=== PATIENT | male | born 1995 | race Caucasian/White ===

== ENCOUNTER 2018-04-05 16:49 | Emergency (ER) | payer OTHER ==
[2018-04-05] MEDS ORDERED: KETOROLAC 30 MG/ML VIAL IVP STA (17:06)
[2018-04-05] MEDS ORDERED: LIDOCAINE-MPF 2% 10 ML in SODIUM CHLORIDE 0.9% 50 ML IV STA (17:06)
--- NOTE | 2018-04-05 17:10 | ED Physician Documentation ---
PD HPI ABD PAIN - Stated complaint Stated Complaint: BACK/R FLANK PX/VOMITING - Chief complaint Chief Complaint: Back Pain - History obtained from History obtained from: Patient, Family - History of Present Illness Timing - onset: Today Timing - duration: Hours (5) Timing - details: Abrupt onset Pain level max: 10 Pain level now: 10 Quality: Aching, Pain Location: Other (R flank) Radiation: Other (lower abd) Improved by: Other (nothing) Worsened by: Other (nothing) Associated symptoms: Nausea, Vomiting. No: Fever, Hematemesis, Diarrhea, Constipation, Melena, Hematochezia, Dysuria, Hematuria, Chest pain, Near syncope / syncope Similar symptoms before: Diagnosis (renal colic) Recently seen: Not recently seen Review of Systems Ten Systems: 10 systems reviewed and negative Constitutional: denies: Fever, Chills Ears: denies: Ear pain Nose: denies: Rhinorrhea / runny nose, Congestion Throat: denies: Sore throat Cardiac: denies: Chest pain / pressure Respiratory: denies: Cough GI: denies: Nausea, Vomiting, Diarrhea Skin: denies: Rash Musculoskeletal: denies: Neck pain Neurologic: denies: Headache PD PAST MEDICAL HISTORY - Past Surgical History Past Surgical History: No - Present Medications Home Medications: Ambulatory Orders Medication Instructions Recorded Confirmed Acetaminophen [Tylenol] 650 mg PO Q6H #30 supp 03/14/13 06/24/14 Ibuprofen [Motrin] 400 mg PO Q6H #30 tablet 03/14/13 06/24/14 Hydrocodone/Acetaminophen 1 - 2 each PO Q6H PRN #10 tablet 04/05/18 [Hydrocodon-Acetaminophen 5-325] Ibuprofen [Motrin] 800 mg PO Q8H PRN #30 tablet 04/05/18 Ondansetron Odt [Zofran] 4 mg TL Q6H PRN #10 tablet 04/05/18 - Allergies Allergies/Adverse Reactions: Allergies Allergy/AdvReac Type Severity Reaction Status Date / Time No Known Drug Allergies Allergy Verified 04/05/18 16:59 - Social History Does the pt smoke?: No Smoking Status: Never smoker Does the pt drink ETOH?: No Does the pt have substance abuse?: No - Immunizations Immunizations are current?: Yes - POLST Patient has POLST: No PD ED PE NORMAL - Vitals Vital signs reviewed: Yes - General General: Alert and oriented X 3, Well developed/nourished, Other (Appears in pain) - HEENT HEENT: PERRL, Moist mucous membranes - Neck Neck: Supple, no meningeal sign - Cardiac Cardiac: RRR, Strong equal pulses - Respiratory Respiratory: No respiratory distress, Clear bilaterally - Abdomen Abdomen: Soft, Non tender, Non distended - Back Back: No CVA TTP, No spinal TTP - Derm Derm: Warm and dry - Extremities Extremities: No edema - Neuro Neuro: Alert and oriented X 3 - Psych Psych: Normal mood, Normal affect Results - Vitals Vitals: Vital Signs - 24 hr 04/05/18 04/05/18 16:57 19:35 Temperature 35.3 C L Heart Rate 64 73 Respiratory 18 17 Rate Blood Pressure 157/78 H 122/74 O2 Saturation 98 98 Oxygen O2 Source Room air - Labs Labs: Laboratory Tests 04/05/18 04/05/18 04/05/18 17:10 17:18 17:18 WBC 12.2 H RBC 4.71 Hgb 13.1 L Hct 40.1 L MCV 85.1 MCH 27.8 MCHC 32.6 RDW 14.0 Plt Count 311 MPV 8.1 Neut # (Auto) 10.3 H Lymph # (Auto) 1.3 L [place] # (Auto) 0.5 Eos # (Auto) 0.0 Baso # (Auto) 0.0 Absolute Nucleated RBC 0.00 Nucleated RBC % 0.0 Sodium 139 Potassium 3.7 Chloride 104 Carbon Dioxide 24 Anion Gap 11.0 BUN 12 Creatinine 0.9 Estimated GFR (MDRD) 106 Glucose 131 H Calcium 9.4 Total Bilirubin 0.8 AST 21 ALT 28 Alkaline Phosphatase 81 Total Protein 8.0 Albumin 4.3 Globulin 3.7 Albumin/Globulin Ratio 1.2 Lipase 22 Urine Color YELLOW Urine Clarity CLOUDY Urine pH 7.5 Ur Specific [place] 1.020 Urine Protein NEGATIVE Urine Glucose (UA) NEGATIVE Urine Ketones TRACE Urine Occult Blood LARGE H Urine Nitrite NEGATIVE Urine Bilirubin NEGATIVE Urine Urobilinogen 0.2 (NORMAL) Ur Leukocyte Esterase NEGATIVE Urine RBC 11-25 H Urine WBC 0-3 Ur Squamous Epith Cells NONE SEEN Amorphous Sediment Marked Urine Bacteria None Seen Ur Microscopic Review INDICATED Urine Culture Comments NOT INDICATED - Rads (name of study) CT abdomen and pelvis Radiology: Prelim report reviewed, EMP read contemporaneously, See rad report ( 3 mm obstructing calculus in the right mid ureter.) PD MEDICAL DECISION MAKING - ED course Complexity details: reviewed results, re-evaluated patient, considered differential, d/w patient, d/w family ED course: Patient is a 22-year-old male with right flank pain. Has a 3 mm right mid ureteral stone. Given IV lidocaine and Toradol. Pain resolved. No vomiting. No evidence of infected stone. Will place on pain medication for home and follow-up with his doctor. Patient counseled regarding signs and symptoms for which I believe and urgent re-evaluation would be necessary. Patient with good understanding of and agreement to plan and is comfortable going home at this time This document was made in part using voice recognition software. While efforts are made to proofread this document, sound alike and grammatical errors may occur. - Sepsis Event Vital Signs: Vital Signs - 24 hr 04/05/18 04/05/18 16:57 19:35 Temperature 35.3 C L Heart Rate 64 73 Respiratory 18 17 Rate Blood Pressure 157/78 H 122/74 O2 Saturation 98 98 Oxygen O2 Source Room air Departure - Departure Disposition: 01 Home, Self Care Clinical Impression: Ureteral stone Condition: Good Instructions: ED Stone Renal W Colic Follow-Up: your,doctor in 1 week [Other] Prescriptions: Hydrocodone/Acetaminophen [Hydrocodon-Acetaminophen 5-325] 1 - 2 each PO Q6H PRN #10 tablet PRN Reason: pain Ibuprofen [Motrin] 800 mg PO Q8H PRN #30 tablet PRN Reason: PAIN &/OR FEVER Ondansetron Odt [Zofran] 4 mg TL Q6H PRN #10 tablet PRN Reason: Nausea / Vomiting Comments: Drink plenty of water. Return if you worsen, especially for fevers. You do have a kidney stone on the right side, this should pass on its own. Do not drink alcohol or drive while on narcotic pain medicine. Note that many narcotic pain relievers also contain tylenol/acetaminophen. Please ensure that your total dose of acetaminophen from all sources does not exceed 3 grams (3000mg) per day. You may constipated on this medication, take a stool softener such as "Colace" twice a day while you are on it. Also recommend a [id number] laxative such as senna or MiraLAX any day that you do not have a bowel movement. If you received narcotic pain medication in the emergency department, do not drive or operate machinery for the next 24 hours. Discharge Date/Time: 04/05/18 19:36
[2018-04-05 17:19] LABS: BILIRUBIN,URINE NEGATIVE (NEGATIVE); GLUCOSE, URINE (UA) NEGATIVE (NEGATIVE); KETONES,URINE (UA) TRACE mg/dL (NEGATIVE); LEUKOCYTE ESTERASE, URINE NEGATIVE (NEGATIVE); NITRITE,URINE NEGATIVE (NEGATIVE); OCCULT BLOOD,URINE LARGE (NEGATIVE); PH,URINE 7.5 PH (5.0-7.5); PROTEIN,URINE NEGATIVE (NEGATIVE); UROBILINOGEN,URINE 0.2 (NORMAL) E.U./dL (NORMAL)
[2018-04-05 17:20] LABS: CLARITY,URINE CLOUDY (CLEAR)
[2018-04-05 17:22] LABS: BASOPHILS % (AUTO) 0.2 %; EOSINOPHILS % (AUTO) 0.1 %; HGB - HEMOGLOBIN 13.1 g/dL (14.0-18.0); LYMPHOCYTES # (AUTO) 1.3 10^3/uL (1.5-3.5); LYMPHOCYTES % (AUTO) 10.6 %; MEAN CORPUSCULAR HEMOGLOBIN 27.8 pg (27.0-31.0); MEAN CORPUSCULAR HGB CONC 32.6 g/dL (32.0-36.0); MEAN CORPUSCULAR VOLUME 85.1 fL (80.0-94.0); MEAN PLATELET VOLUME 8.1 fL (7.4-11.4); MONOCYTES # (AUTO) 0.5 10^3/uL (0.0-1.0); MONOCYTES % (AUTO) 4.4 %; NEUTROPHILS # (AUTO) 10.3 10^3/uL (1.5-6.6); NEUTROPHILS % (AUTO) 84.7 %; PLT - PLATELET COUNT 311 10^3/uL (130-450); RED BLOOD COUNT 4.71 10^6/uL (4.70-6.10); WHITE BLOOD COUNT 12.2 x10^3/uL (4.8-10.8)
[2018-04-05 17:32] LABS: AMORPHOUS SEDIMENT,UR Marked /LPF; BACTERIA,URINE None Seen /HPF (None Seen); SQUAMOUS EPITHELIAL CELL,UR NONE SEEN (<= Few)
[2018-04-05 17:37] LABS: ALBUMIN 4.3 g/dL (3.2-5.5); ALBUMIN/GLOBULIN RATIO 1.2 (1.0-2.2); BILIRUBIN,TOTAL 0.8 mg/dL (0.2-1.0); CALCIUM 9.4 mg/dL (8.5-10.3); CREATININE 0.9 mg/dL (0.6-1.2)
[2018-04-05] MEDS ORDERED: IOPAMIDOL-300 100 ML VIAL ONE (18:52)
[2018-04-05] MEDS ORDERED: IOPAMIDOL-300 100 ML VIAL IVP ONE (19:17)
--- NOTE | 2018-04-05 19:26 | CT Report ---
Procedure Date: 04/05/2018 Accession Number: [id number] / [id number] Procedure: CT - Abdomen/Pelvis W/ CPT Code: FULL RESULT: EXAM: CT ABDOMEN AND PELVIS EXAM DATE: 04/05/2018 06:57 PM. CLINICAL HISTORY: R flank pain. COMPARISONS: None. TECHNIQUE: Routine helical CT imaging was performed through the abdomen and pelvis. IV contrast: ISOVUE 300 100mL. Enteric contrast: No. Reconstructions: Coronal and sagittal. In accordance with CT protocol optimization, one or more of the following dose reduction techniques were utilized for this exam: automated exposure control, adjustment of mA and/or KV based on patient size, or use of iterative reconstructive technique. FINDINGS: ABDOMEN: Lung Bases: Incompletely included lower lungs are grossly clear. Heart size is within normal limits. No basilar effusions. Liver: Unremarkable. Spleen: Unremarkable. Pancreas: Unremarkable. Gallbladder/Bile Ducts: Gallbladder is unremarkable. Biliary tree is normal caliber. Adrenal Glands: Unremarkable. Kidneys: Obstructing 3 mm calculus in the right mid ureter with upstream mild hydroureteronephrosis. Left kidney is unremarkable. Peritoneum/Mesentery/Bowel: No free fluid, free air, or collection. No intestinal obstruction or inflammation. The appendix is within normal limits. Lymph nodes: No mesenteric, periportal, or retroperitoneal lymphadenopathy. Vasculature: Abdominal aorta is nonaneurysmal. Portal vein is patent. Hepatic veins are patent. PELVIS: The bladder is unremarkable for the degree of distention. The uterus is absent. No pelvic lymphadenopathy. Bones: No suspicious osseous lesions. IMPRESSION: 3 mm obstructing calculus in the right mid ureter. RADIA
[2018-04-05 19:37] VITALS: BP 122/74
== END 2018-04-05 19:36 | disposition home or self-care (01) ==
LOC: ED 16:49
DX: N20.1 Calculus of ureter (principal)
CPT/HCPCS: 36415; 74177; 80053; 81001; 83690; 85025; 96365; 96375; 99283; 99284; Q9967; 81003; 87086

== ENCOUNTER 2023-09-28 09:48 | Emergency (ER) | payer MEDICAID, OTHER ==
[2023-09-28 10:14] LABS: BASOPHILS # (AUTO) 0.1 10^3/uL (0.0-0.1); BASOPHILS % (AUTO) 0.4 %; EOSINOPHILS # (AUTO) 0.1 10^3/uL (0.0-0.7); EOSINOPHILS % (AUTO) 0.6 %; HCT - HEMATOCRIT 47.2 % (42.0-52.0); HGB - HEMOGLOBIN 14.6 g/dL (14.0-18.0); LYMPHOCYTES # (AUTO) 2.8 10^3/uL (1.5-3.5); LYMPHOCYTES % (AUTO) 19.4 %; MEAN CORPUSCULAR HEMOGLOBIN 26.6 pg (27.0-31.0); MEAN CORPUSCULAR HGB CONC 30.9 g/dL (32.0-36.0); MEAN PLATELET VOLUME 10.2 fL (7.4-11.4); MONOCYTES # (AUTO) 1.1 10^3/uL (0.0-1.0); MONOCYTES % (AUTO) 7.4 %; NEUTROPHILS # (AUTO) 10.2 10^3/uL (1.5-6.6); NEUTROPHILS % (AUTO) 71.8 %; PLT - PLATELET COUNT 362 10^3/uL (130-450); RED BLOOD COUNT 5.49 10^6/uL (4.70-6.10); RED CELL DISTRIBUTION WIDTH 13.2 % (12.0-15.0); WHITE BLOOD COUNT 14.2 x10^3/uL (4.8-10.8)
[2023-09-28 10:31] LABS: ALBUMIN 4.3 g/dL (3.2-5.5); ALBUMIN/GLOBULIN RATIO 1.3 (1.0-2.2); ALKALINE PHOSPHATASE 215 IU/L (42-121); ALT ALANINE AMINOTRANSFERASE 357 IU/L (10-60); AST ASPARTATE AMINOTRANSFERASE 170 IU/L (10-42); BILIRUBIN,TOTAL 3.1 mg/dL (0.2-1.0); BUN - BLOOD UREA NITROGEN 4 mg/dL (6-20); CALCIUM 9.9 mg/dL (8.5-10.3); CARBON DIOXIDE - CO2 20 mmol/L (21-32); CHLORIDE 104 mmol/L (101-111); CREATININE 0.8 mg/dL (0.6-1.3); GFR - MDRD 115 (>89); GLUCOSE 196 mg/dL (74-104); POTASSIUM 3.7 mmol/L (3.5-4.5); SODIUM 135 mmol/L (135-145); TOTAL PROTEIN 7.6 g/dL (6.4-8.9)
[2023-09-28 10:49] LABS: LIPASE > 6000 U/L (11-82)
[2023-09-28] MEDS ORDERED: SODIUM CHLORIDE 0.9% 1,000 ML IV STA (10:57)
[2023-09-28 10:58] LABS: GLUCOSE, URINE (UA) NEGATIVE (NEGATIVE); KETONES,URINE (UA) NEGATIVE (NEGATIVE); LEUKOCYTE ESTERASE, URINE NEGATIVE (NEGATIVE); NITRITE,URINE NEGATIVE (NEGATIVE); OCCULT BLOOD,URINE MODERATE (NEGATIVE); PROTEIN,URINE NEGATIVE (NEGATIVE); UROBILINOGEN,URINE 4 E.U./dL (NORMAL)
[2023-09-28] MEDS ORDERED: ONDANSETRON 4 MG/2 ML VIAL IVP STA (11:00)
[2023-09-28] MEDS ORDERED: HYDROmorphone 1 MG/ML CARPUJECT IVP STA ×3 (11:00→18:02)
[2023-09-28 11:07] LABS: CLARITY,URINE CLEAR (CLEAR)
[2023-09-28 11:08] LABS: BILIRUBIN,URINE MODERATE (NEGATIVE); ICTOTEST,URINE POSITIVE
[2023-09-28 11:13] LABS: BACTERIA,URINE None Seen /HPF (None Seen); SQUAMOUS EPITHELIAL CELL,UR RARE Squamous (<= Few)
[2023-09-28 11:14] LABS: MUCUS,URINE Few Strands
--- NOTE | 2023-09-28 12:04 | Ultrasound Report ---
PROCEDURE: Abdomen Limited INDICATIONS: RUQ abd pain, TECHNIQUE: Real-time focused scanning was performed of the abdomen, with image documentation. COMPARISONS: None. FINDINGS: Liver: The liver demonstrates normal size. The liver demonstrates moderately increased echogenicit y, which limits ultrasound sensitivity for detection of masses. The main portal vein demonstrates nor mal size and hepatopedal flow. Gallbladder: There are 3 stones seen near the gallbladder neck, with the largest measuring 1.9 cm. Th e gallbladder wall is minimally thickened at 4 mm. There is no specific pericholecystic fluid. The s onographic Quintanilla's sign is negative. Biliary ducts: Intrahepatic bile ducts are non-dilated. Extrahepatic bile duct caliber measures 7 m m. Normal is 6-7 mm or less in diameter, or 10 mm or less post-cholecystectomy. Pancreas: Not well seen. Right kidney: The right kidney isn't well seen. No significant abnormality is seen. Aorta: Visualized aorta is normal in caliber at less than 3 cm. IVC: Intrahepatic inferior vena cava is patent. Miscellaneous: No free abdominal fluid. IMPRESSION: 3 gallstones are seen near the gallbladder neck. There is mild gallbladder wall thickening. No defi nite additional findings of cholecystitis are seen. Please correlate with patient presentation, clini abril examination findings, and laboratory values, as appropriate. No biliary dilatation. Reviewed by: Alfonso Smith MD on 09/28/2023 11:03 AM [facility] Approved by: Alfonso Smith MD on 09/28/2023 11:03 AM [facility] Station ID: [id number]
[2023-09-28] MEDS ORDERED: cefTRIAXone 1 GM in SODIUM CHLORIDE 0.9% MINIBAG 100 ML IV STA (12:25)
[2023-09-28] MEDS ORDERED: metroNIDAZOLE 500 MG/100 ML 500 MG/100 ML BAG IV ONE (12:26)
--- NOTE | 2023-09-28 12:28 | ED Physician Documentation ---
History of Present Illness - Stated complaint Stated Complaint: VOMITING/ABD BACK PX - Chief complaint Chief Complaint: Abd Pain - Additonal information Additional information: Patient 28-year-old male with past medical significant for obesity presenting to the emergency department with abdominal pain, nausea, vomiting. Reports right upper quadrant abdominal pain that began approximately 3 days ago. Pain subsequently moved towards his mid abdomen and has been associated with nausea vomiting. Reports he has been intolerant to solid foods but has been able to tolerate small sips of fluid at home. Has never had pain similar to this in the past. Denies any surgical history. He denies any fever. Denies any changes in bowel or bladder habit. Review of Systems Constitutional: denies: Fever Eyes: denies: Loss of vision Ears: denies: Loss of hearing Nose: denies: Rhinorrhea / runny nose Throat: denies: Dental pain / toothache Cardiac: denies: Chest pain / pressure Respiratory: denies: Dyspnea GI: reports: Abdominal Pain, Nausea, Vomiting. denies: Constipation, Diarrhea, Hematemesis : denies: Dysuria Skin: denies: Rash Musculoskeletal: denies: Neck pain PD PAST MEDICAL HISTORY - Past Medical History Past Medical History: Yes : Kidney stones - Past Surgical History Past Surgical History: No - Present Medications Home Medications: Ambulatory Orders Medication Instructions Recorded Confirmed No Known Home Medications 09/28/23 09/28/23 - Allergies Allergies/Adverse Reactions: Allergies Allergy/AdvReac Type Severity Reaction Status Date / Time No Known Drug Allergies Allergy Verified 04/05/18 16:59 - Social History Does the pt smoke?: No Smoking Status: Never smoker Does the pt drink ETOH?: No Does the pt have substance abuse?: No - Immunizations Immunizations are current?: Yes - POLST Patient has POLST: No PD ED PE NORMAL - Vitals Vital signs reviewed: Yes - General General: Alert and oriented X 3, Other (Patient actively retching into the toilet basin upon my arrival) - HEENT HEENT: Atraumatic, PERRL, EOMI, Moist mucous membranes, Pharynx benign - Neck Neck: Supple, no meningeal sign, No bony TTP, No adenopathy, Thyroid normal, No JVD - Cardiac Cardiac: RRR, No murmur, No gallop, Strong equal pulses - Respiratory Respiratory: No respiratory distress - Abdomen Abdomen: Normal bowel sounds, Other (Obese abdomen. Epigastric tenderness without guarding, rebound, rigidity.) - Male Male : Deferred Results - Vitals Vitals: Vital Signs - 24 hr 09/28/23 09/28/23 09/28/23 09:50 12:24 13:00 Temperature 37.1 C Heart Rate 88 87 89 Respiratory 30 H 16 16 Rate Blood Pressure 149/88 H 129/87 H 134/90 H O2 Saturation 100 94 92 09/28/23 09/28/23 09/28/23 14:30 16:00 18:00 Temperature Heart Rate 102 H 93 93 Respiratory 18 18 17 Rate Blood Pressure 140/99 H 136/91 H 134/93 H O2 Saturation 98 96 97 09/28/23 09/28/23 09/28/23 19:30 20:30 22:00 Temperature Heart Rate 86 85 86 Respiratory 16 16 16 Rate Blood Pressure 126/84 H 124/85 H 124/88 H O2 Saturation 97 98 93 09/29/23 09/29/23 09/29/23 00:00 02:00 04:00 Temperature Heart Rate 89 96 107 H Respiratory 16 18 16 Rate Blood Pressure 123/93 H 106/63 129/95 H O2 Saturation 96 99 94 09/29/23 06:30 Temperature 36.3 C L Heart Rate 103 H Respiratory 18 Rate Blood Pressure 130/85 H O2 Saturation 95 Oxygen O2 Source Room air - Labs Labs: Laboratory Tests 09/28/23 09/28/23 09/28/23 10:09 10:09 10:09 WBC 14.2 H RBC 5.49 Hgb 14.6 Hct 47.2 MCV 86.0 MCH 26.6 L MCHC 30.9 L RDW 13.2 Plt Count 362 MPV 10.2 Neut # (Auto) 10.2 H Lymph # (Auto) 2.8 [place] # (Auto) 1.1 H Eos # (Auto) 0.1 Baso # (Auto) 0.1 Absolute Nucleated RBC 0.00 Nucleated RBC % 0.0 Sodium 135 Potassium 3.7 Chloride 104 Carbon Dioxide 20 L Anion Gap 11.0 BUN 4 L Creatinine 0.8 Estimated GFR (MDRD) 115 Glucose 196 H Calcium 9.9 Total Bilirubin 3.1 H AST 170 H ALT 357 H Alkaline Phosphatase 215 H Total Protein 7.6 Albumin 4.3 Globulin 3.3 Albumin/Globulin Ratio 1.3 Lipase > 6000 H Urine Color Urine Clarity Urine pH Ur Specific [place] Urine Protein Urine Glucose (UA) Urine Ketones Urine Occult Blood Urine Nitrite Urine Bilirubin Urine Urobilinogen Ur Leukocyte Esterase Urine RBC Urine WBC Ur Squamous Epith Cells Urine Bacteria Urine Mucus Ur Microscopic Review Urine Culture Comments Ethyl Alcohol < 10.0 09/28/23 09/29/23 09/29/23 10:33 04:42 04:42 WBC 11.8 H RBC 5.45 Hgb 14.8 Hct 48.8 MCV 89.5 MCH 27.2 MCHC 30.3 L RDW 13.7 Plt Count 347 MPV 9.8 Neut # (Auto) 9.9 H Lymph # (Auto) 1.2 L [place] # (Auto) 0.7 Eos # (Auto) 0.0 Baso # (Auto) 0.0 Absolute Nucleated RBC 0.00 Nucleated RBC % 0.0 Sodium 138 Potassium 4.1 Chloride 105 Carbon Dioxide 23 Anion Gap 10.0 BUN 7 Creatinine 0.6 Estimated GFR (MDRD) 160 Glucose 115 H Calcium 9.0 Total Bilirubin AST ALT Alkaline Phosphatase Total Protein Albumin Globulin Albumin/Globulin Ratio Lipase Urine Color DK. [place] Urine Clarity CLEAR Urine pH 6.0 Ur Specific [place] 1.015 Urine Protein NEGATIVE Urine Glucose (UA) NEGATIVE Urine Ketones NEGATIVE Urine Occult Blood MODERATE H Urine Nitrite NEGATIVE Urine Bilirubin MODERATE H Urine Urobilinogen 4 H Ur Leukocyte Esterase NEGATIVE Urine RBC 11-25 H Urine WBC 4-5 Ur Squamous Epith Cells RARE Squamous Urine Bacteria None Seen Urine Mucus Few Strands Ur Microscopic Review INDICATED Urine Culture Comments NOT INDICATED Ethyl Alcohol PD Medical Decision Making - ED course Complexity details: reviewed results, re-evaluated patient, considered rob roberts, d/w patient, d/w family, d/w consultant rn ED course: Patient 28-year-old male presenting to the emergency department with right upper quadrant, epigastric abdominal pain with associated nausea vomiting. Patient in acute distress on arrival to the emergency department actively vomiting. Notable epigastric tenderness to palpation without indications of peritonitis. No specific right upper quadrant tenderness appreciated on my exam. Labs demonstrate elevated lipase greater than 6000 and as well as elevations AST, ALT, T. bili all consistent with acute pancreatitis with associated biliary pathology. Right upper quadrant ultrasonography shows multiple large gallstones, many of which prominently in the gallbladder neck without dilatation of the common bile duct. At this time we do not have a surgical service available and there is no gastroenterology available at this facility. His care was discussed with both gastroenterology and surgery at [facility]. In short on review of the case gastroenterology did not feel that he needed emergent ERCP. The surgical service did report that they would be willing to see the patient in consultation but asked that he be admitted under the medical service at their facility for management of his acute pancreatitis. The medical service at [facility] declined the admission. Per the director community organization the stated reason was that "they[the patient] can just stay in the emergency room until they get better". Further attempt was made to transfer the patient to [facility] however patient was declined at [facility] with the charge nurse there stating that their hospitalist had requested the patient be sent to a higher level of care, and a facility with available gastroenterology and ERCP capability. Throughout the patient's stay in the emergency department he was given IV hydration and multiple doses of pain medication for management of his symptoms. Additionally he was given dose Rocephin and Flagyl. At this time we will be signing him out to the oncoming physician, please see their documentation for further detail. Departure - Departure Forms: PCP List
[2023-09-28] MEDS ORDERED: SODIUM CHLORIDE 0.9% 150 ML IV STA (14:39)
[2023-09-28] MEDS: SODIUM CHLORIDE 0.9% 1,000 ML IV STA ×2 (16:16→21:36)
[2023-09-28] MEDS ORDERED: ACETAMINOPHEN 500 MG TABLET PO PRN (20:10)
[2023-09-28] MEDS ORDERED: ONDANSETRON 4 MG/2 ML VIAL IVP PRN (20:10)
--- NOTE | 2023-09-28 23:00 | ED Physician Documentation ---
ED Addendum - Addendum Addendum: 09/28/23 22:56 Patient endorsed to my by Dr. Rushing at 10pm shift change. patient has been here about 12 hours at this point with diagnosis of gallstone pancreatitis with lipase >6000. d/w Peggy general surgeon senior radiation therapist Dr. Diana that patient will need ERCP and we do not have that capability. The daytime [facility] [place] called several hospitals that are all full and not accepting patients. [facility], [facility], [facility], all declined admission. Our SOC ANALYST will keep looking for more beds. Plan to maintain on IVF, pain control PRN, antibiotics. Hopefully will find placement but if not will endorse to incoming daytime ED MD at 7am shift change.
[2023-09-29] MEDS ORDERED: HYDROmorphone 1 MG/ML CARPUJECT IVP STA ×4 (00:27→16:15)
[2023-09-29] MEDS ORDERED: SODIUM CHLORIDE 0.9% 1,000 ML IV STA ×2 (00:27→11:47)
[2023-09-29 04:51] LABS: BASOPHILS % (AUTO) 0.2 %; HCT - HEMATOCRIT 48.8 % (42.0-52.0); HGB - HEMOGLOBIN 14.8 g/dL (14.0-18.0); LYMPHOCYTES # (AUTO) 1.2 10^3/uL (1.5-3.5); LYMPHOCYTES % (AUTO) 10.1 %; MEAN CORPUSCULAR HEMOGLOBIN 27.2 pg (27.0-31.0); MEAN CORPUSCULAR HGB CONC 30.3 g/dL (32.0-36.0); MEAN CORPUSCULAR VOLUME 89.5 fL (80.0-94.0); MEAN PLATELET VOLUME 9.8 fL (7.4-11.4); MONOCYTES # (AUTO) 0.7 10^3/uL (0.0-1.0); MONOCYTES % (AUTO) 5.7 %; NEUTROPHILS # (AUTO) 9.9 10^3/uL (1.5-6.6); NEUTROPHILS % (AUTO) 83.7 %; PLT - PLATELET COUNT 347 10^3/uL (130-450); RED BLOOD COUNT 5.45 10^6/uL (4.70-6.10); RED CELL DISTRIBUTION WIDTH 13.7 % (12.0-15.0); WHITE BLOOD COUNT 11.8 x10^3/uL (4.8-10.8)
[2023-09-29 05:07] LABS: CREATININE 0.6 mg/dL (0.6-1.3); POTASSIUM 4.1 mmol/L (3.5-4.5)
[2023-09-29] MEDS ORDERED: PANTOPRAZOLE 40 MG TABLET PO SCH (07:00)
--- NOTE | 2023-09-29 07:14 | ED Physician Documentation ---
ED Addendum - Addendum Addendum: 09/29/23 17:30 Patient received a signout from outgoing physician, please see their do cumentation for further detail. In short patient 28-year-old male who is brought in the emergency department for approximately 24 hours with acute gallstone pancreatitis. Evaluated independently at bedside. Patient continues to endorse for some mild/modest pain. Is requiring doses of pain medication every few hours. Is still intolerant to food or fluids. If continued IV hydration. A.m. labs are reviewed. Patient's white count is downtrending and electrolytes are within normal limits. 09/29/23 17:36 His care was again discussed with the would be hospitalist who declined admission with the stated reason being that since we do not currently have a surgical service it would be inappropriate for him to remain here at our facility. His care was subsequently discussed with the surgical PA at [facility] who very graciously agreed to accept the patient. He was transferred from our facility to [facility] without incident.
[2023-09-29] MEDS ORDERED: GADOTERATE MEGLUMINE 5 MMOL/10 ML VIAL ONE (14:56)
[2023-09-29] MEDS ORDERED: GADOTERATE MEGLUMINE 10 MMOL/20 ML VIAL ONE (14:56)
[2023-09-29] MEDS ORDERED: GADOTERATE MEGLUMINE 10 MMOL/20 ML VIAL IVP ONE (16:09)
[2023-09-29] MEDS ORDERED: GADOTERATE MEGLUMINE 5 MMOL/10 ML VIAL IVP ONE (16:10)
[2023-09-29 16:20] VITALS: BP 127/90; O2SAT 93
--- NOTE | 2023-09-29 16:33 | MRI Report ---
PROCEDURE: MRCP W/WO INDICATIONS: Gallstone pancreatits CONTRAST: Clariscan 29ml TECHNIQUE: Coronal ultra fast SE through the abdomen, axial 2-D spoiled GE in- and [id number], and breath-hold T2 FSE with fat saturation through the biliary system and pancreas. Oblique coronal and axial thin- slice ultra fast SE, radial thick-slab ultra fast SE centered on the extrahepatic bile ducts. COMPARISON: 09/28/2023 ultrasound, CT April 05, 2018 FINDINGS: Image quality: Diagnostic, but motion degraded Lower chest: Bibasilar consolidations and atelectasis, mild. Normal heart size where visualized. Lung s are not well evaluated on MRI. Liver: Liver parenchyma is unremarkable. There is mild pericapsular fluid. No suspicious hypervascula r lesion. Gallbladder and biliary system: Cholelithiasis, including a stone in the gallbladder neck. There is n onspecific pericholecystic fluid, mild to moderate. CBD is nondilated, no discrete filling defect or obstructing mass is seen. Pancreas: Peripancreatic moderate edema. No areas of altered enhancement. No ductal dilation. Spleen: Nonenlarged Adrenals: No discrete nodule Kidneys: No solid mass or hydronephrosis Vessels and lymph nodes: In the retroperitoneum, mild to moderate edema is seen along the anterior pe rirenal bilaterally, also surrounding the kidneys. No pathologic lymph nodes by size criteria. No abd ominal aortic aneurysm or seen. The main portal vein is patent. Arteries are not well assessed on thi s study. Bowel and peritoneum: No evidence of drainable fluid collection in the upper abdomen. No bowel obstru ction. Mild diffuse mesenteric fat stranding and fluid along the paracolic gutters. Body wall: Unremarkable Bones: No acute or suspicious finding. IMPRESSION: No biliary ductal dilation or discrete obstructing mass or stone identified. Cholelithiasis with nons pecific pericholecystic fat stranding, including a stone lodged in the gallbladder neck. On recent ul trasound, no sonographic Quintanilla's sign was elicited. If further evaluation is needed, consider nuclear medicine HIDA study or ERCP. Sequelae of acute interstitial pancreatitis with moderate edema along the mesenteric root, anterior p ararenal fascia, renal capsule, and paracolic gutters. No drainable fluid collection. Bibasilar pulmonary consolidations and atelectasis partially seen. Other findings as above. Reviewed by: Donn Parisi MD on 09/29/2023 4:32 PM PST Approved by: Donn Parisi MD on 09/29/2023 4:32 PM PST Station ID: [id number]
== END 2023-09-29 17:21 | disposition short-term general hospital (02) ==
LOC: ED 09:48
DX: K85.10 Biliary acute pancreatitis without necrosis or infection (principal)
CPT/HCPCS: 36415; 74183; 76705; 80048; 80053; 80320; 81001; 83690; 85025; 96365; 96367; 96375; 96376; 99285; A9270; A9575; J1170; 81003; 87086

== ENCOUNTER 2023-09-29 17:46 | Outpatient (CLI) | payer MEDICAID | END 2023-09-29 23:59 | disposition short-term general hospital (02) | LOC: EMS 17:46 | PROVIDERS: ATTEND Student in an Organized Health Care Education/Training Program | DX: K85.90 Acute pancreatitis without necrosis or infection, unspecified (principal); K80.20 Calculus of gallbladder without cholecystitis without obstruction | CPT/HCPCS: A0425; A0428 ==